=== PATIENT | female | born 1940 | race Caucasian/White ===

== ENCOUNTER 2017-08-16 10:33 | Emergency (ER) | payer OTHER ==
--- NOTE | 2017-08-16 10:58 | PDOC ---
History of Present Illness - General Chief Complaint: Pain Stated Complaint: LEFT LEG AND KNEE PAIN Time Seen by Provider: 08/16/17 10:36 History Source: Patient Exam Limitations: No Limitations - History of Present Illness Initial Comments: 08/16/17 10:53 76 y/o female with left leg pain today. Awoke with pain in the back of her left leg, no swelling or SOB and no long distance traveling. Denies any recent surgery, fever or chills. Patient denies fall or trauma. Took 2 Aspirin and feeling better. Timing/Duration: 4-6 hours Severity: mild Associated Symptoms: denies: shortness of breath Past History - Past Medical History Allergies/Adverse Reactions: Allergies Allergy/AdvReac Type Severity Reaction Status Date / Time Quinolones AdvReac Verified 08/16/17 10:35 Home Medications: Ambulatory Orders Aspirin [Lo-Dose Aspirin EC] 81 mg PO DAILY 08/16/17 Cholecalciferol (Vitamin D3) [Vitamin D3] 1,000 unit PO DAILY 08/16/17 Metoprolol Tartrate 100 mg PO TID 08/16/17 Rosuvastatin Calcium [Crestor] 20 mg PO HS 08/16/17 Ubidecarenone/Vit E Acet [Co Q-10 100 mg Softgel] 1 cap PO DAILY 08/16/17 Valsartan [Diovan] 40 mg PO DAILY 08/16/17 Valsartan [Diovan] 80 mg PO HS 08/16/17 Review of Systems - Review of Systems Able to Perform ROS?: Yes Is the patient limited Macedonian proficient: No Constitutional: No: Chills, Fever Respiratory: No: Cough, Shortness of Breath Cardiac (ROS): No: Chest Pain Musculoskeletal: No: Back Pain, Joint Pain, Muscle Weakness All Other Systems: Reviewed and Negative *Physical Exam - Physical Exam General Appearance: Yes: Nourished, Appropriately Dressed. No: Apparent Distress HEENT: positive: EOMI, GOKUL, Normal ENT Inspection Neck: positive: Trachea midline, Normal Thyroid, Supple Respiratory/Chest: positive: Lungs Clear, Normal Breath Sounds. negative: Chest Tender Cardiovascular: positive: Regular Rhythm, Regular Rate, S1, S2. negative: Edema , JVD, Murmur Gastrointestinal/Abdominal: positive: Normal Bowel Sounds, Flat, Soft Lymphatic: negative: Adenopathy, Tenderness, Other Musculoskeletal: positive: Normal Inspection. negative: CVA Tenderness Extremity: positive: Normal Capillary Refill, Normal Inspection, Normal Range of Motion. negative: Tender, Coldness, Cyanosis, Delayed Capillary Refill, Pedal Edema, Swelling, Calf Tenderness (left leg with full ROM, no swelling or erythema noted, neg Bhanu's sign, neg calf tenderness), Erythema, Inflammation Integumentary: positive: Normal Color, Dry, Warm. 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, Fully Oriented, Alert, Normal Mood/ Affect, Normal Response, Motor Strength 5/5 (strength 5+/5 b/l in UE and LE, no focal deficits noted, pulses 2+/4 b/l in LE) ED Treatment Course - ADDITIONAL ORDERS Additional order review: 08/16/17 10:58 Pt with left leg tenderness and no known injury, will obtain US left leg to r/o DVT Pt is in agreement with plan - RADIOLOGY Radiology Studies Ordered: Category Date Time Status DUPLEX VASCUL US-1 LEG [US] Stat Ultrasound 08/16/17 10:52 Ordered 08/16/17 12:24 US left leg: No DVT, Carter's cyst Discussed with pt, Tylenol, follow up with Orthopedics Pt is in agreement with plan Able to ambulate without difficulty *DC/Admit/Observation/Transfer Diagnosis at time of Disposition: Carter's cyst Qualifiers: Laterality: left Qualified Code(s): M71.22 - Synovial cyst of popliteal space [ Carter], left knee - Discharge Dispostion Disposition: HOME Condition at time of disposition: Stable Admit: No - Referrals Referrals: Jerome Mackey MD [Staff Physician] - - Patient Instructions Printed Discharge Instructions: Bakers Cyst Additional Instructions: Ice, Motrin, rest Follow up with Orthopedics If worsen return to ER - Post Discharge Activity
[2017-08-16 11:05] VITALS: BP 179/83; PULSE 68; TEMP 97.5; BMI 20.8
== END 2017-08-16 12:55 | disposition home or self-care (01) ==
LOC: FER 10:33
DX: M71.22 Synovial cyst of popliteal space [Baker], left knee (principal)
CPT/HCPCS: 93971-TC; 99282-25

== ENCOUNTER 2017-10-16 05:25 | Emergency (ER) | payer OTHER ==
[2017-10-16 05:31] VITALS: TEMP 98.4; BMI 20.8
--- NOTE | 2017-10-16 05:41 | PDOC ---
History of Present Illness <Arcadio Shaffer - Last Filed: 10/16/17 08:36> - History of Present Illness Initial Comments: 10/16/17 05:54 This 76-year-old woman with a history of hypertension and coronary artery disease(s/pCABG) presents with headache and elevated blood pressure noted on home monitoring device. Patient states that she normally wakes up between 2 and 4 AM. Today, she awakened at about 3 AM and noted bilateral frontal headache. Pain subsequently radiated to the back of her head and she became nauseated She took 2 aspirin for the headache; she took a blood pressure reading from her home monitor and noted that it was very elevated (200/110 range ). Because of the elevated BP, she took her a.m. dose of Diovan (80 mg) at 8 AM. Since then, she has had mild decrease in headache pain but nausea persists. She denies slurred speech/facial droop/extremity weakness/vision or balance problems/ word recall difficulties today. She had migraine headaches in the past that were severe but resolved after menopause. She states that some of the features of today's headache is similar to her migraine episodes(posterior portion of her headache pain is pulsatile and she is nauseated). Patient cannot recall any activity, ingested food or other triggers of migraine recently. Patient also has a history of sinus headaches; no recent nasal congestion but she has been taking Zyrtec because of early pollen sensitivities She denies shortness of breath/chest pain/diaphoresis PMD is [facility] As above, also history of orthostatic hypotension (followed by Dr. Crawford) History of detached retina , left side within the last few months <Jackie Chua - Last Filed: 10/16/17 11:43> - General Chief Complaint: Blood Pressure Problem Stated Complaint: "MY BLOOD PRESSURE IS HIGH" Time Seen by Provider: 10/16/17 05:41 Past History <Arcadio Shaffer - Last Filed: 10/16/17 08:36> - Past Medical History COPD: No GI Disorders: Yes HTN: Yes - Surgical History Cardiac Surgery: Yes (3 VESSEL BYPASS) - Suicide/Smoking/Psychosocial Hx Smoking History: Former smoker Have you smoked in the past 12 months: No Number of Cigarettes Smoked Daily: 0 If you are a former smoker, when did you quit?: 15 YEARS AGO Information on smoking cessation initiated: No Hx Alcohol Use: No Drug/Substance Use Hx: No Substance Use Type: None <Jackie Chua - Last Filed: 10/16/17 11:43> - Past Medical History Allergies/Adverse Reactions: Allergies Allergy/AdvReac Type Severity Reaction Status Date / Time Quinolones AdvReac Verified 08/16/17 10:35 Home Medications: Ambulatory Orders Aspirin [Lo-Dose Aspirin EC] 81 mg PO DAILY 08/16/17 Cholecalciferol (Vitamin D3) [Vitamin D3] 1,000 unit PO DAILY 08/16/17 Metoprolol Tartrate 100 mg PO TID 08/16/17 Rosuvastatin Calcium [Crestor] 20 mg PO HS 08/16/17 Ubidecarenone/Vit E Acet [Co Q-10 100 mg Softgel] 1 cap PO DAILY 08/16/17 Valsartan [Diovan] 40 mg PO DAILY 08/16/17 Valsartan [Diovan] 80 mg PO HS 08/16/17 Review of Systems - Review of Systems Able to Perform ROS?: Yes Comments:: 12 point review of systems is negative except for what is noted in the history of present illness <Jackie Chua - Last Filed: 10/16/17 11:43> *Physical Exam - Vital Signs Last Vital Signs Temp Pulse Resp BP Pulse Ox 98.4 F 70 14 177/94 99 10/16/17 05:26 10/16/17 08:23 10/16/17 05:26 10/16/17 08:23 10/16/17 08:23 <Arcadio Shaffer S - Last Filed: 10/16/17 08:36> - Vital Signs Last Vital Signs Temp Pulse Resp BP Pulse Ox 98.4 F 61 14 202/91 98 10/16/17 05:26 10/16/17 05:31 10/16/17 05:26 10/16/17 05:26 10/16/17 05:31 - Physical Exam Comments: GENERAL: Elderly female, alert and oriented 3, fluent speech and mild distress secondary to headache HEAD: Normal with no signs of trauma. EYES: PERRLA, pupils 1 mm bilaterally EOMI, sclera anicteric, conjunctiva clear on right, mildly injected on left. ENT: Ears normal, nares patent, oropharynx clear without exudates. Dry mucous membranes. NECK: Normal range of motion, supple without lymphadenopathy, JVD, or masses. LUNGS: Breath sounds equal, clear to auscultation bilaterally. No wheezes, and no crackles. HEART:Regular rate and rhythm, normal S1 and S2 3/6 systolic murmur across the precordium ABDOMEN:.normal bowel sounds No guarding,tenderness or rebound.No masses No distention. EXTREMITIES: Normal range of motion, no edema. No clubbing or cyanosis. No erythema, or tenderness. NEUROLOGICAL: Cranial nerves II through XII grossly intact. Normal speech. No focal neurological deficits. No pronator drift. Motor functioning 5/5 throughout. No sensory deficits. Gait not tested MUSCULOSKELETAL: Back non-tender to palpation, no CVA tenderness SKIN: Warm, Dry, normal turgor, no rashes or lesions noted. <Jackie Chua - Last Filed: 10/16/17 11:43> ED Treatment Course - LABORATORY CBC & Chemistry Diagram: 10/16/17 06:30 10/16/17 06:00 - ADDITIONAL ORDERS Additional order review: Laboratory Results 10/16/17 10/16/17 10/16/17 07:00 07:00 06:30 PT with INR 11.7 INR 1.05 Sodium Potassium Chloride Carbon Dioxide Anion Gap BUN Creatinine Creat Clearance w eGFR Random Glucose Calcium Total Bilirubin AST ALT Alkaline Phosphatase Creatine Kinase 102 Troponin I < 0.03 Total Protein Albumin 10/16/17 06:00 PT with INR INR Sodium 138 Potassium 3.7 Chloride 104 Carbon Dioxide 29 H Anion Gap 5 L BUN 30 H Creatinine 1.2 Creat Clearance w eGFR 43.68 Random Glucose 111 H D Calcium 9.8 Total Bilirubin 0.8 D AST 36 D ALT 36 D Alkaline Phosphatase 58 D Creatine Kinase 102 Troponin I Total Protein 6.8 Albumin 4.2 10/16/17 06:30 RBC 4.47 MCV 94.7 MCHC 34.8 RDW 13.2 MPV 9.7 Neutrophils % 67.9 Lymphocytes % 21.1 Monocytes % 8.3 Eosinophils % 2.7 Basophils % 0.0 - Medications Given in the ED: ED Medications Discontinued Medications Generic Name Dose Route Start Last Admin Trade Name Freq PRN Reason Stop Dose Admin Metoclopramide HCl 10 mg 10/16/17 05:47 03/15/18 06:03 Reglan Injection - IVPB 10/16/17 05:48 10 mg ONCE ONE Administration Ondansetron HCl 4 mg 10/16/17 06:49 10/16/17 06:52 Zofran Injection IVPUSH 10/16/17 06:50 4 mg ONCE ONE Administration <LuismiguelarmaniArcadio - Last Filed: 10/16/17 08:36> - LABORATORY CBC & Chemistry Diagram: 10/16/17 06:30 10/16/17 06:00 <Jackie Chua - Last Filed: 10/16/17 11:43> Medical Decision Making - Medical Decision Making 10/16/17 06:09 Patient had episode of vomiting (small amount of yellowish fluid). Patient given Reglan 10 mg IVPB in 100 mL both for antiemetic effects and treatment of possible migraine CBC/chemistry profile/cardiac enzymes and INR sent. Noncontrast head CT will be performed to evaluate for acute intracranial pathology 10/16/17 06:49 Patient reports some improvement in her headache, although nausea persisted. Patient be given Zofran 4 mg 12-lead electrocardiogram ordered Care of this patient signed out to incoming physician at end of shift. <Jackie Chua - Last Filed: 10/16/17 11:43> *DC/Admit/Observation/Transfer <Arcadio Shaffer - Last Filed: 10/16/17 08:36> <Jackie Chua - Last Filed: 10/16/17 11:43> Diagnosis at time of Disposition: Headache Qualifiers: Headache type: other headache syndrome Qualified Code(s): G44.89 - Other headache syndrome Hypertension Qualifiers: Hypertension type: essential hypertension Qualified Code(s): I10 - Essential ( primary) hypertension - Discharge Dispostion Condition at time of disposition: Good - Referrals Referrals: Jigar Bell MD [Primary Care Provider] - Fabiola Crawford MD [Non Staff, Medical] - - Patient Instructions Printed Discharge Instructions: DI for High Blood Pressure, How to Monitor Your Blood Pressure at Home Additional Instructions: Take medications as routine. Follow up with your doctors - Post Discharge Activity
[2017-10-16] MEDS ORDERED: METOCLOPRAMIDE HCL INJECTION 10 MG/2 ML VIAL IVPB ONE (05:47)
[2017-10-16] MEDS ORDERED: ONDANSETRON 4 MG/2 ML VIAL IVPUSH ONE (06:49)
[2017-10-16] MEDS ORDERED: ONDANSETRON 4 MG/2 ML VIAL ONE (07:06)
[2017-10-16 07:29] LABS: INR 1.05 (0.82-1.09); PROTHROMBIN TIME (PATIENT) 11.7 SEC (10.2-13.0)
[2017-10-16 07:46] LABS: EOS % 2.7 % (0-4.5); HEMATOCRIT 42.3 % (32.4-45.2); HEMOGLOBIN 14.7 GM/dl (10.7-15.3); LYMPH % 21.1 % (8-40); MCH 32.9 pg (25.7-33.7); MCHC 34.8 g/dl (32.0-36.0); MEAN CELL VOLUME 94.7 fl (80-96); MEAN PLT VOLUME 9.7 fl (7.5-11.1); MONO % 8.3 % (3.8-10.2); NEUT % 67.9 % (42.8-82.8); PLATELET COUNT 178 K/MM3 (134-434); RBC 4.47 M/mm3 (3.60-5.2); RDW 13.2 % (11.6-15.6); WHITE BLOOD COUNT 8.7 K/mm3 (4.0-10.8)
[2017-10-16 07:47] LABS: ALBUMIN 4.2 g/dl (3.5-5.0); ALK PHOS 58 U/L (32-92); ANION GAP 5 (8-16); BILIRUBIN,TOTAL 0.8 mg/dl (0.2-1.0); BLOOD UREA NITROGEN 30 mg/dl (7-18); CALCIUM 9.8 mg/dl (8.4-10.2); CHLORIDE 104 mmol/L (98-107); CO2 29 mmol/L (22-28); CREATININE 1.2 mg/dl (0.6-1.3); GLUCOSE,RANDOM 111 mg/dl (74-106); POTASSIUM 3.7 mmol/L (3.5-5.1); SGOT/AST 36 U/L (10-42); SGPT/ALT 36 U/L (10-40); SODIUM 138 mmol/L (136-145); TOT PROT 6.8 g/dl (6.4-8.3)
[2017-10-16 08:24] VITALS: BP 177/94; PULSE 70
--- NOTE | 2017-10-16 08:39 | PDOC ---
*Physical Exam - Vital Signs Last Vital Signs Temp Pulse Resp BP Pulse Ox 98.4 F 70 14 177/94 99 10/16/17 05:26 10/16/17 08:23 10/16/17 05:26 10/16/17 08:23 10/16/17 08:23 ED Treatment Course - LABORATORY CBC & Chemistry Diagram: 10/16/17 06:30 10/16/17 06:00 - ADDITIONAL ORDERS Additional order review: Laboratory Results 10/16/17 10/16/17 10/16/17 07:00 07:00 06:30 PT with INR 11.7 INR 1.05 Sodium Potassium Chloride Carbon Dioxide Anion Gap BUN Creatinine Creat Clearance w eGFR Random Glucose Calcium Total Bilirubin AST ALT Alkaline Phosphatase Creatine Kinase 102 Troponin I < 0.03 Total Protein Albumin 10/16/17 06:00 PT with INR INR Sodium 138 Potassium 3.7 Chloride 104 Carbon Dioxide 29 H Anion Gap 5 L BUN 30 H Creatinine 1.2 Creat Clearance w eGFR 43.68 Random Glucose 111 H D Calcium 9.8 Total Bilirubin 0.8 D AST 36 D ALT 36 D Alkaline Phosphatase 58 D Creatine Kinase 102 Troponin I Total Protein 6.8 Albumin 4.2 10/16/17 06:30 RBC 4.47 MCV 94.7 MCHC 34.8 RDW 13.2 MPV 9.7 Neutrophils % 67.9 Lymphocytes % 21.1 Monocytes % 8.3 Eosinophils % 2.7 Basophils % 0.0 - Medications Given in the ED: ED Medications Discontinued Medications Generic Name Dose Route Start Last Admin Trade Name Freq PRN Reason Stop Dose Admin Metoclopramide HCl 10 mg 10/16/17 05:47 10/16/17 06:03 Reglan Injection - IVPB 10/16/17 05:48 10 mg ONCE ONE Administration Ondansetron HCl 4 mg 10/16/17 06:49 10/16/17 06:52 Zofran Injection IVPUSH 10/16/17 06:50 4 mg ONCE ONE Administration *DC/Admit/Observation/Transfer Diagnosis at time of Disposition: Headache Qualifiers: Headache type: other headache syndrome Qualified Code(s): G44.89 - Other headache syndrome Hypertension Qualifiers: Hypertension type: essential hypertension Qualified Code(s): I10 - Essential ( primary) hypertension - Discharge Dispostion Condition at time of disposition: Good - Referrals Referrals: Jigar Bell MD [Primary Care Provider] - Fabiola Crawford MD [Non Staff, Medical] - - Patient Instructions Printed Discharge Instructions: DI for High Blood Pressure, How to Monitor Your Blood Pressure at Home Additional Instructions: Take medications as routine. Follow up with your doctors - Post Discharge Activity
--- NOTE | 2017-10-17 15:10 | EKG ---
Test Reason : Blood Pressure : / mmHG Vent. Rate : 063 BPM Atrial Rate : 063 BPM P-R Int : 158 ms QRS Dur : 080 ms QT Int : 416 ms P-R-T Axes : 108 -02 054 degrees QTc Int : 425 ms NORMAL SINUS RHYTHM SEPTAL INFARCT , AGE UNDETERMINED ABNORMAL ECG NO PREVIOUS ECGS AVAILABLE Confirmed by PIPO HOLMAN MD ([id number]) on 10/17/2017 3:09:40 PM Referred By: JOSE ALLEN Confirmed By:PIPO HOLMAN MD
== END 2017-10-16 08:47 | disposition home or self-care (01) ==
LOC: FER 05:25
PROC: 3E033GC Introduction of Other Therapeutic Substance into Peripheral Vein, Percutaneous Approach (ICD-10-PCS; principal; 2017-10-16)
DX: G44.89 Other headache syndrome (principal); I10 Essential (primary) hypertension; I25.10 Atherosclerotic heart disease of native coronary artery without angina pectoris; Z87.891 Personal history of nicotine dependence
CPT/HCPCS: 36415; 70450-TC; 80053; 82550; 84484; 85025; 85610; 93005; 99284-25

== ENCOUNTER 2018-05-27 08:24 | Day surgery (SDC) | payer OTHER ==
[2018-05-22 14:27] VITALS: BMI 21.1
[2018-05-27] MEDS: TROPICAMIDE 1% OPHTH SOLN 15 ML BOTTLE ONE ×3 (09:05→09:15)
[2018-05-27] MEDS: PHENYLEPHRINE 2.5% OPHTH SOLN 15 ML BOTTLE ONE ×3 (09:05→09:15)
[2018-05-27] MEDS: CIPROFLOXACIN 0.3% EYE DROPS 5 ML BOTTLE ONE ×3 (09:05→09:15)
[2018-05-27] MEDS: CYCLOPENTOLATE 2% OPHTH SOLN 2 ML BOTTLE ONE ×3 (09:05→09:15)
[2018-05-27] MEDS ORDERED: NEO/POLYMYX B SULF/DEXAMETH OPHTHALMIC 5ML BOTTLE ONE (10:09)
[2018-05-27] MEDS ORDERED: CARBACHOL 0.01% INTRA-OCULAR 1.5 ML VIAL ONE (10:09)
[2018-05-27] MEDS ORDERED: BSS (NA/CA/MG/K) BALANCED SALT SOLUTION OPHTH SOLN 15 ML BOTTLE ONE (10:09)
[2018-05-27] MEDS ORDERED: TETRACAINE 0.5% OPHTH SOLN 2 ML BOTTLE ONE (10:09)
[2018-05-27] MEDS ORDERED: LIDOCAINE 1% P/F 10 MG/ML VIAL ONE (10:09)
--- NOTE | 2018-05-27 12:20 | OP ---
DATE OF OPERATION: 05/27/2018 OPERATIVE PROCEDURE: Lens Phacoemulsification with Posterior Chamber Intraocular Lens Placement Left Eye PREOPERATIVE DIAGNOSIS: Visually Significant Cataract of Left Eye POSTOPERATIVE DIAGNOSIS: Visually Significant Cataract of Left Eye SURGEON: Kahlil Lr M.D. ANESTHESIA: MAC ANESTHESIOLOGIST: PROCEDURE: The patient was brought to the operating room and placed under monitored anesthesia care by Anesthesia. A drop of Tetracaine was then placed over the left eye. The patient was then prepped and draped in the usual sterile manner. A speculum was then placed over the left eye. The eye was then well irrigated with copious amounts of BSS (balanced salt solution). The operating microscope was then moved into position. A paracentesis was performed using a 15 degree blade. At this point 0.5 mL of 1% preservative-free lidocaine was injected into the anterior chamber. Amvisc plus was then injected into the anterior chamber. A clear corneal incision was then formed using a 2.2 mm keratome. A capsulorrhexis was then performed in a continuous circular fashion beginning with a cystotome, completed with an Utratas forceps. Hydrodissection was then performed using BSS on a cannula. The phaco probe was then introduced through the corneal wound and the cataract was removed using the phaco chop technique. Approximately 3 seconds of absolute phaco time was used. The remaining cortex was then removed using irrigation and aspiration with an I/A probe. The capsule was then filled with regular Amvisc and the capsule was noted to be intact. A previously selected foldable posterior chamber intraocular lens was then injected into the capsule through the corneal wound using a lens injector. It was then dialed into position using a Sinskey hook. The Amvisc was then removed using irrigation and aspiration. Miostat was then injected through the paracentesis to constrict the pupil. The paracentesis and corneal wound were then hydrated and noted to be water tight. A drop of Maxitrol was then placed over the eye. The speculum was removed and clear shield was taped over the eye. The patient tolerated the procedure well and there were no surgical complications. The patient was asked to follow up in my office the next day. KAHLIL LR M.D. MARIA [id number]
[2018-05-27] MEDS ORDERED: ACETAMINOPHEN 325 MG TABLET (FP) PO PRN (12:55)
[2018-05-27] MEDS ORDERED: ONDANSETRON 4 MG/2 ML VIAL IVPUSH PRN (12:55)
[2018-05-27] MEDS ORDERED: LACTATED RINGERS SOLUTION 1,000 ML IV SCH (13:00)
[2018-05-27 13:46] VITALS: TEMP 97.6
[2018-05-27 14:20] VITALS: BP 146/72; PULSE 59
== END 2018-05-27 11:30 | disposition home or self-care (01) ==
LOC: FASU 08:24
PROVIDERS: ATTEND Ophthalmology
PROC: 08RK3JZ Replacement of Left Lens with Synthetic Substitute, Percutaneous Approach (ICD-10-PCS; principal; 2018-05-27 10:22)
DX: H26.8 Other specified cataract (principal)

== ENCOUNTER 2018-07-08 09:02 | Day surgery (SDC) | payer OTHER ==
[2018-07-03 09:13] VITALS: BMI 21.1
[2018-07-08] MEDS: CYCLOPENTOLATE 2% OPHTH SOLN 2 ML BOTTLE ONE ×3 (09:50→10:00)
[2018-07-08] MEDS: CIPROFLOXACIN 0.3% EYE DROPS 5 ML BOTTLE ONE ×3 (09:50→10:00)
[2018-07-08] MEDS: TROPICAMIDE 1% OPHTH SOLN 15 ML BOTTLE ONE ×3 (09:50→10:00)
[2018-07-08] MEDS: PHENYLEPHRINE 2.5% OPHTH SOLN 15 ML BOTTLE ONE ×3 (09:50→10:00)
[2018-07-08] MEDS ORDERED: BSS (NA/CA/MG/K) BALANCED SALT SOLUTION OPHTH SOLN 15 ML BOTTLE ONE (10:49)
[2018-07-08] MEDS ORDERED: CARBACHOL 0.01% INTRA-OCULAR 1.5 ML VIAL ONE (10:49)
[2018-07-08 12:11] VITALS: TEMP 97.9
[2018-07-08 12:13] VITALS: BP 110/65; PULSE 71
--- NOTE | 2018-07-08 17:48 | OP ---
DATE OF OPERATION: 07/08/2018 OPERATIVE PROCEDURE: Lens Phacoemulsification with Posterior Chamber Intraocular Lens Placement, Right Eye PREOPERATIVE DIAGNOSIS: Visually Significant Cataract of Right Eye POSTOPERATIVE DIAGNOSIS: Visually Significant Cataract of Right Eye SURGEON: Kahlil Lr M.D. ANESTHESIA: MAC ANESTHESIOLOGIST: PROCEDURE: The patient was brought to the operating room and placed under monitored anesthesia care by Anesthesia. A drop of Tetracaine was then placed over the right eye. The patient was then prepped and draped in the usual sterile manner. A speculum was then placed over the right eye. The eye was then well irrigated with copious amounts of BSS (balanced salt solution). The operating microscope was then moved into position. A paracentesis was performed using a 15 degree blade. At this point 0.5 mL of 1% preservative free-lidocaine was injected into the anterior chamber. Amvisc plus was then injected into the anterior chamber. A clear corneal incision was then formed using a 2.2 mm keratome. A capsulorrhexis was then performed in a continuous circular fashion beginning with a cystotome completed with an Utratas forceps. Hydrodissection was then performed using BSS on a cannula. The phaco probe was then introduced through the corneal wound and the cataract was removed using the phaco chop technique. Approximately 3 seconds of absolute phaco time was used. The remaining cortex was then removed using irrigation and aspiration with an I/A probe. The capsule was then filled with regular Amvisc and the capsule was noted to be intact. A previously selected foldable posterior chamber intraocular lens was then injected into the capsule through the corneal wound using a lens injector. It was then dialed into position using a Sinskey hook. The Amvisc was then removed using irrigation and aspiration. Miostat was then injected through the paracentesis to constrict the pupil. The paracentesis and corneal wound were then hydrated and noted to be water tight. A drop of Maxitrol was then placed over the eye. The speculum was removed and clear shield was taped over the eye. The patient tolerated the procedure well and there were no surgical complications. The patient was asked to follow up in my office the next day. KAHLIL LR M.D. [id number]
== END 2018-07-08 12:05 | disposition home or self-care (01) ==
LOC: FASU 09:02
PROVIDERS: ATTEND Ophthalmology
PROC: 08RJ3JZ Replacement of Right Lens with Synthetic Substitute, Percutaneous Approach (ICD-10-PCS; principal; 2018-07-08 11:03)
DX: H26.8 Other specified cataract (principal)

== ENCOUNTER 2018-11-21 10:46 | Emergency (ER) | payer OTHER ==
--- NOTE | 2018-11-21 10:52 | PDOC ---
History of Present Illness - General Chief Complaint: Pain Stated Complaint: RT ANKLE PAIN Time Seen by Provider: 11/21/18 10:50 - History of Present Illness Initial Comments: 11/21/18 11:21 78yo female with pmhx of cad s/p cabg, new kidney disease, htn, hld presents with R ankle pain and swelling. Pt denies trauma. States the pain started on Friday while at work. States it has been aching in both her heel and her R ankle. States she has been sleeping with a sleeve on to help with the pain. Pt denies f/c. No calf pain. No falls. No recent travel. No pets, no bug bites, no rashes. States a month ago she developed L shoulder pain with ROM which has resolved and now she has R ankle pain and swelling. Pt denies cp/sob. No abd pain. No n/v.d. No f/c. No other complaints. Pmhx: cad, kidney disease, htn, hld Pshx: cabg allergies: codeine, quinolones Past History - Past Medical History Allergies/Adverse Reactions: Allergies Allergy/AdvReac Type Severity Reaction Status Date / Time codeine AdvReac Intermediate NAUSEA/VOMI Verified 05/27/18 09:12 TING Quinolones AdvReac Intermediate SEVERE Verified 05/27/18 09:12 NAUSEA,MUSCLE WEAKNESS Home Medications: Ambulatory Orders Aspirin [Lo-Dose Aspirin EC] 81 mg PO DAILY 08/16/17 Metoprolol Tartrate 100 mg PO TID 08/16/17 Rosuvastatin Calcium [Crestor] 20 mg PO HS 08/16/17 Amlodipine Besylate 2.5 mg PO BID 05/22/18 Meclizine HCl 12.5 mg PO ASDIR 05/22/18 Olmesartan Medoxomil [Benicar] 20 mg PO BID 05/22/18 Anemia: No Asthma: No Cancer: No Cardiac Disorders: Yes (2008 CHEST PAINS PRIOR TO BYPASS, DENIES RI) CVA: No COPD: No CHF: No Dementia: No Diabetes: No GI Disorders: Yes (HX GERD IN THE PAST) Disorders: No HTN: Yes Hypercholesterolemia: Yes Liver Disease: No (ELEVATED LFT S) Seizures: No Thyroid Disease: No - Surgical History Abdominal Surgery: No Appendectomy: No Cardiac Surgery: Yes (3 VESSEL BYPASS 2007) Cholecystectomy: No Lung Surgery: No Neurologic Surgery: No - Suicide/Smoking/Psychosocial Hx Smoking History: Former smoker Have you smoked in the past 12 months: No Number of Cigarettes Smoked Daily: 0 If you are a former smoker, when did you quit?: 08/2002 Hx Alcohol Use: No (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 ) Drug/Substance Use Hx: No Substance Use Type: None Hx Substance Use Treatment: No Review of Systems - Review of Systems Able to Perform ROS?: Yes Is the patient limited Maori proficient: No Constitutional: No: Chills, Fever HEENTM: No: Eye Pain, Nose Pain, Nose Congestion Respiratory: No: Cough, Shortness of Breath Cardiac (ROS): No: Chest Pain, Lightheadedness, Palpitations ABD/GI: No: Diarrhea, Nausea, Vomiting, Abdominal cramping : No: Burning, Dysuria Musculoskeletal: Yes: Joint Pain (ankle pain and swelling) Integumentary: No: Bruising, Erythema, Rash Neurological: No: Headache, Numbness, Paresthesia, Unsteady Gait, Ataxia All Other Systems: Reviewed and Negative *Physical Exam - Vital Signs 11/21/18 11:26 Selected Entries 11/21/18 10:47 Temperature 98.2 F Pulse Rate 88 Respiratory 20 Rate Blood Pressure 130/72 Blood Pressure 91 Mean O2 Sat by Pulse 98 Oximetry (%) Weight 64.41 kg - Physical Exam General Appearance: Yes: Nourished, Appropriately Dressed. No: Apparent Distress HEENT: positive: EOMI, Normal Voice Neck: positive: Supple Respiratory/Chest: positive: Lungs Clear, Normal Breath Sounds. negative: Respiratory Distress Cardiovascular: positive: Regular Rhythm, Regular Rate, S1, S2, Edema (b/l trave pedal edema). negative: JVD Gastrointestinal/Abdominal: positive: Normal Bowel Sounds, Flat, Soft. negative : Guarding, Rebound, Tenderness Musculoskeletal: positive: Normal Inspection Extremity: positive: Normal Capillary Refill, Normal Range of Motion, Swelling ( b/l pedal edmea R>L), Other (R ankle ttp over the anterior aspect of the medial malleolus, no heel ttp, FROM of the ankle, neg anterior drawer test of the ankle , pedal pulses intact, sensation intact, brisk cap refill, no ttp over metatarsals, no medial malleolus ttp, no ttp along distal fibula or tibia, no calf ttp). negative: Calf Tenderness Integumentary: positive: Normal Color, Dry, Warm Neurologic: positive: Fully Oriented, Alert, Normal Mood/Affect, Motor Strength 12/06 ED Treatment Course - LABORATORY CBC & Chemistry Diagram: 11/21/18 11:17 11/21/18 11:17 Medical Decision Making - Medical Decision Making 11/21/18 11:29 a/p: 78yo female with new kidney disease dx with c/o R ankle pain and swelling -will send labs, cr/K given complaint of emilee horse feeling at night -will obtain ultrasound of legs -will obtain xrays of foot and ankle for eval of poss arthritis -will give tylenol for pain -will monitor and reassess -pt is nontoxic in appearance 11/21/18 11:59 arthritic changes to ankle no acute fx cbc reviewed without acute findings 11/21/18 12:20 Cr 1.3 no dvt bakers cyst 11/21/18 12:31 discussed labs and imaging results in full details discussed follow up with orthopedics discussed RICE for the ankle discussed all reasons to return to the ED answered all questions pt stable for dc to home *DC/Admit/Observation/Transfer Diagnosis at time of Disposition: Carter's cyst, Arthritis of ankle - Discharge Dispostion Disposition: HOME Condition at time of disposition: Stable Decision to Admit order: No - Referrals Referrals: Jigar Bell MD [Staff Physician] - Jerome Mackey MD [Staff Physician] - Karl Boyce DO [Staff Physician] - Nathan Rutledge MD [Staff Physician] - - Patient Instructions Printed Discharge Instructions: DI for Arthrodesis of the Ankle Additional Instructions: Please apply ice 20 min on and 20 min off. Please wear the sleeve to apply compression to the ankle. Please elevate the leg. Please take tylenol as needed for pain. Please follow up with orthopedics for further evaluation of the ankle and leg pain. Please also follow up with your PMD as scheduled. Please return to the ED with any further concerns or complaints. - Post Discharge Activity - Attestations Physician Attestion: 11/21/18 12:34 I, Dr. Suzan Hammond, DO, attest that this document has been prepared under my direction and personally reviewed by me in its entirety. I further attest, that it accurately reflects all work, treatment, procedures and medical decision -making performed by me.
[2018-11-21 11:01] VITALS: BP 130/72; PULSE 88; TEMP 98.2; BMI 22.2
[2018-11-21 11:56] LABS: BASO % 0.8 % (0-2.0); EOS % 2.4 % (0-4.5); HEMATOCRIT 38.7 % (32.4-45.2); LYMPH % 22.1 % (8-40); MCH 32.2 pg (25.7-33.7); MCHC 33.5 g/dl (32.0-36.0); MEAN CELL VOLUME 95.9 fl (80-96); MEAN PLT VOLUME 9.7 fl (7.5-11.1); MONO % 8.3 % (3.8-10.2); NEUT % 66.4 % (42.8-82.8); PLATELET COUNT 151 K/MM3 (134-434); RBC 4.04 M/mm3 (3.60-5.2); RDW 13.1 % (11.6-15.6); WHITE BLOOD COUNT 6.4 K/mm3 (4.0-10.8)
[2018-11-21] MEDS ORDERED: ACETAMINOPHEN 500 MG TABLET (FP) PO ONE (12:01)
[2018-11-21 12:09] LABS: ALBUMIN 3.6 g/dl (3.4-5.0); ALK PHOS 52 U/L (45-117); ANION GAP 6 MMOL/L (8-16); BILIRUBIN,TOTAL 0.9 mg/dl (0.2-1); BLOOD UREA NITROGEN 24 mg/dl (7-18); CALCIUM 9.2 mg/dl (8.5-10); CHLORIDE 105 mmol/L (98-107); CO2 26 mmol/L (21-32); CREATININE 1.3 mg/dl (0.55-1.3); GLUCOSE,RANDOM 134 mg/dl (74-106); POTASSIUM 3.9 mmol/L (3.5-5.1); SGOT/AST 23 U/L (15-37); SGPT/ALT 17 U/L (13-61); SODIUM 137 mmol/L (136-145); TOT PROT 6.4 g/dl (6.4-8.2)
[2018-11-21] MEDS ORDERED: ACETAMINOPHEN 500 MG TABLET (FP) ONE (12:09)
== END 2018-11-21 12:40 | disposition home or self-care (01) ==
LOC: FER 10:46
DX: M13.871 Other specified arthritis, right ankle and foot (principal); Z87.891 Personal history of nicotine dependence; K21.9 Gastro-esophageal reflux disease without esophagitis; I10 Essential (primary) hypertension; E78.00 Pure hypercholesterolemia, unspecified; Z95.1 Presence of aortocoronary bypass graft; N28.9 Disorder of kidney and ureter, unspecified
CPT/HCPCS: 36415; 73610-TC-RT-FY; 73630-TC-RT-FY; 80053; 85025; 93971-TC; 99282-25

== ENCOUNTER 2021-10-19 14:06 | Emergency (ER) | payer OTHER ==
[2021-10-19 14:22] VITALS: BP 94/58; PULSE 74; TEMP 97.7; BMI 23.3
== END 2021-10-19 15:40 | disposition home or self-care (01) ==
LOC: FER 14:06
DX: M17.11 Unilateral primary osteoarthritis, right knee (principal); M25.561 Pain in right knee
CPT/HCPCS: 73562-TC-RT-FY; 99283-25

== ENCOUNTER 2022-08-29 22:13 | Emergency (ER) | payer OTHER ==
[2022-08-29 22:24] VITALS: BMI 23.5
[2022-08-29 23:08] LABS: HEMATOCRIT 32.8 % (32.4-45.2); HEMOGLOBIN 11.5 G/dL (10.7-15.3); MCH 34.1 pg (25.7-33.7); MEAN CELL VOLUME 97.7 fl (80-96); MEAN PLT VOLUME 9.2 fl (7.5-11.1); PLATELET COUNT 177.8 10^3/uL (134-434); RBC 3.36 10^6/uL (3.60-5.2); RDW 16.3 % (11.6-15.6); WHITE BLOOD COUNT 8.2 10^3/uL (4.0-10.8)
[2022-08-29] MEDS ORDERED: FUROSEMIDE 40 MG/4 ML INJECTABLE VIAL IVPUSH ONE (23:09)
[2022-08-29] MEDS ORDERED: FUROSEMIDE 40 MG/4 ML INJECTABLE VIAL ONE (23:12)
[2022-08-29 23:15] LABS: ALBUMIN 3.4 g/dl (3.4-5.0); BILIRUBIN,TOTAL 0.6 mg/dl (0.2-1); CALCIUM 11.3 mg/dl (8.5-10); CREATININE 1.8 mg/dl (0.55-1.3)
[2022-08-29] MEDS ORDERED: POTASSIUM CHLORIDE TABS 20 MEQ TABLET.ER (FP) PO ONE ×2 (23:18→23:19)
[2022-08-30] MEDS ORDERED: POTASSIUM CHLORIDE 20 MEQ PREMIX IVPB 100 ML IVPB ONE (01:25)
[2022-08-30] MEDS ORDERED: KCL 10 MEQ IVPB 20 MEQ/200 ML INFUS.BAG IVPB ONE (01:37)
[2022-08-30 03:08] LABS: MAGNESIUM 2.2 mg/dL (1.8-2.4)
[2022-08-30 03:13] LABS: PHOSPHOROUS 3.6 mg/dL (2.5-4.9)
[2022-08-30 08:04] LABS: HEMATOCRIT 35.8 % (32.4-45.2); HEMOGLOBIN 12.2 G/dL (10.7-15.3); MCH 33.4 pg (25.7-33.7); MCHC 34.1 g/dl (32.0-36.0); MEAN CELL VOLUME 98.1 fl (80-96); MEAN PLT VOLUME 9.7 fl (7.5-11.1); PLATELET COUNT 210.8 10^3/uL (134-434); RBC 3.65 10^6/uL (3.60-5.2); RDW 17.1 % (11.6-15.6); WHITE BLOOD COUNT 10.5 10^3/uL (4.0-10.8)
[2022-08-30 08:09] LABS: INR 1.02 (0.83-1.09); PROTHROMBIN TIME (PATIENT) 11.7 SEC (9.7-13.0)
[2022-08-30 08:10] LABS: ACTIVATED PTT 29.3 SECONDS (25.2-36.5)
[2022-08-30 08:40] LABS: CALCIUM 11.2 mg/dl (8.5-10); CREATININE 1.8 mg/dl (0.55-1.3)
[2022-08-30] MEDS ORDERED: ASPIRIN COATED 81 MG TABLET.EC ONE (09:56)
[2022-08-30] MEDS: KCL 10 MEQ IVPB 10 MEQ/100 ML INFUS.BAG IVPB SCH ×2 (09:57→11:15)
[2022-08-30] MEDS ORDERED: KCL 10 MEQ IVPB 10 MEQ/100 ML INFUS.BAG IVPB ONE ×2 (09:57→12:00)
[2022-08-30] MEDS ORDERED: ASPIRIN COATED 81 MG TABLET.EC PO SCH (10:00)
[2022-08-30 10:08] LABS: EPITHELIAL CELLS RARE /hpf
[2022-08-30] MEDS ORDERED: SODIUM CHLORIDE 0.9% 500 ML INFUS.BAG IV ONE (12:17)
[2022-08-30] MEDS ORDERED: SODIUM CHLORIDE 1,000 ML IV SCH (14:45)
[2022-08-30 16:40] VITALS: TEMP 98.2
[2022-08-30 16:46] VITALS: BP 91/61; PULSE 44; RESP 16
[2022-08-30] MEDS ORDERED: ROSUVASTATIN CA 20 MG TABLET PO SCH (22:00)
== END 2022-08-30 18:12 | disposition short-term general hospital (02) ==
LOC: FER 22:13 → SUPCPDRO 22:13 → FER 08-30 18:12
PROC: 3E033GC Introduction of Other Therapeutic Substance into Peripheral Vein, Percutaneous Approach (ICD-10-PCS; principal; 2022-08-29)
DX: R53.83 Other fatigue (principal); R00.1 Bradycardia, unspecified; E87.6 Hypokalemia
CPT/HCPCS: 0241U-QW; 36415; 71045-TC-FY; 80048; 80053; 81003; 81015; 82550; 83735; 83880; 84100; 84439; 84443; 84479; 84484; 85027; 85610; 85730; 87086; 87186; 93005; 93306-TC; 99285-25

== ENCOUNTER 2023-01-12 17:55 | Emergency (ER) | payer OTHER ==
[2023-01-12 18:19] VITALS: TEMP 98.2; BMI 23.5
[2023-01-12] MEDS ORDERED: ACETAMINOPHEN 500 MG TABLET (FP) PO ONE (19:07)
[2023-01-12] MEDS ORDERED: ACETAMINOPHEN 500 MG TABLET (FP) ONE (19:23)
[2023-01-12 19:36] VITALS: RESP 17
[2023-01-12] MEDS ORDERED: LABETALOL HCL 100 MG TABLET (FP) PO ONE (19:43)
[2023-01-12] MEDS ORDERED: LORazepam 0.5 MG TABLET PO ONE (19:43)
[2023-01-12] MEDS ORDERED: LABETALOL HCL 100 MG TABLET (FP) ONE (19:47)
[2023-01-12] MEDS ORDERED: LORazepam 0.5 MG TABLET ONE (19:47)
[2023-01-12 20:52] VITALS: BP 145/81; PULSE 84
== END 2023-01-12 21:17 | disposition home or self-care (01) ==
LOC: FER 17:55
DX: R51.9 Headache, unspecified (principal); I10 Essential (primary) hypertension
CPT/HCPCS: 70450-TC; 99284-25

== ENCOUNTER 2024-03-25 21:11 | Emergency (ER) | payer OTHER ==
[2024-03-25 21:18] VITALS: BMI 23.5
[2024-03-25 22:01] VITALS: BP 135/87; PULSE 77; RESP 12; TEMP 97.6
== END 2024-03-25 23:35 | disposition home or self-care (01) ==
LOC: FER 21:11
DX: M25.561 Pain in right knee (principal)
CPT/HCPCS: 73562-TC-RT-FY; 99283-25

== ENCOUNTER 2025-05-28 09:16 | Inpatient (IN) | payer OTHER ==
[2025-05-28 10:34] LABS: ARTERIAL BLD GAS O2 SATURATION 99.1 % (95-98); ARTERIAL BLOOD GAS BASE EXCESS 5.1 mmol/L (-2-2); ARTERIAL BLOOD GAS PCO2 40.00 mmHg (35-45); ARTERIAL BLOOD GAS PO2 157.8 mmHg (80-100); BG HCT 48.0 % (32.4-45.2)
[2025-05-28 13:15] LABS: ABSOLUTE IMMATURE GRANULOCYTES 0.05 x10^3/uL (0.0-0.031); BASOPHILS # 0.04 x10^3/uL (0.01-0.08); EOSINOPHIL % 0.7 % (0.7-5.8); EOSINOPHILS # 0.08 x10^3/uL (0.04-0.36); MCHC 33.5 g/dl (32.2-35.5); MEAN CELL VOLUME 94.8 fl (79.4-94.8); MEAN PLT VOLUME 10.6 fl (9.4-12.3); MONOCYTE # 0.72 x10^3/uL (0.24-0.86); MONOCYTE % 6.5 % (4.7-12.5); RDW 14.2 % (12.5-17.0)
[2025-05-28 14:09] LABS: ALK PHOS 65 U/L (45-117); CO2 33 mmol/L (21-32); CREATININE 0.9 mg/dl (0.6-1.3); GLUCOSE,RANDOM 110 mg/dl (74-106); SGOT/AST 21 U/L (15-37); SGPT/ALT 12 U/L (7-52); TOT PROT 7.1 g/dl (6.4-8.2)
[2025-05-28 15:54] LABS: HCV DIAGNOSTIC IN-HOUSE W/RFLX NON-REACTIVE (NONREACTIVE); HIV INTERPRETATION NEGATIVE (NEGATIVE)
[2025-05-28 16:13] VITALS: BMI 21.1
[2025-05-28] MEDS: POTASSIUM CHLORIDE TABS 20 MEQ TABLET.ER (FP) PO SCH (18:24)
[2025-05-28] MEDS: ROSUVASTATIN CA 20 MG TABLET PO SCH (21:27)
[2025-05-29 09:03] LABS: ABSOLUTE IMMATURE GRANULOCYTES 0.02 x10^3/uL (0.0-0.031); BASOPHILS # 0.07 x10^3/uL (0.01-0.08); EOSINOPHIL % 2.9 % (0.7-5.8); EOSINOPHILS # 0.24 x10^3/uL (0.04-0.36); MCHC 33.0 g/dl (32.2-35.5); MEAN CELL VOLUME 95.5 fl (79.4-94.8); MEAN PLT VOLUME 10.9 fl (9.4-12.3); MONOCYTE # 0.75 x10^3/uL (0.24-0.86); MONOCYTE % 8.9 % (4.7-12.5); RDW 14.4 % (12.5-17.0)
[2025-05-29] MEDS: TRIAMTERENE AND HCTZ - 37.5 MG/25 MG CAPSULE PO SCH (09:57)
[2025-05-29 10:55] LABS: ALK PHOS 59.0 U/L (45-117); CO2 31.0 mmol/L (21-32); CREATININE 0.9 mg/dl (0.6-1.3); GLUCOSE,RANDOM 86.0 mg/dl (74-106); SGOT/AST 21.0 U/L (15-37); SGPT/ALT 11.0 U/L (7-52); TOT PROT 6.4 g/dl (6.4-8.2)
[2025-05-30 07:47] LABS: ABSOLUTE IMMATURE GRANULOCYTES 0.04 x10^3/uL (0.0-0.031); BASOPHILS # 0.07 x10^3/uL (0.01-0.08); EOSINOPHIL % 3.0 % (0.7-5.8); EOSINOPHILS # 0.23 x10^3/uL (0.04-0.36); MCHC 33.3 g/dl (32.2-35.5); MEAN CELL VOLUME 94.5 fl (79.4-94.8); MEAN PLT VOLUME 10.3 fl (9.4-12.3); MONOCYTE # 0.71 x10^3/uL (0.24-0.86); MONOCYTE % 9.2 % (4.7-12.5); RDW 14.1 % (12.5-17.0)
[2025-05-30 09:14] LABS: ALK PHOS 57.0 U/L (45-117); CO2 31.0 mmol/L (21-32); CREATININE 0.9 mg/dl (0.6-1.3); GLUCOSE,RANDOM 97.0 mg/dl (74-106); LDL CHOLESTEROL (ONLY DFH) 50.0 mg/dL (5-100); SGOT/AST 20.0 U/L (15-37); SGPT/ALT 12.0 U/L (7-52); TOT PROT 6.3 g/dl (6.4-8.2)
[2025-05-30] MEDS: POLYETHYLENE GLYCOL (HEALTHYLAX) 3350 17 GM PACKET PO SCH (18:43)
[2025-05-30] MEDS: APIXABAN 2.5 MG TABLET PO SCH (18:57)
[2025-05-31 01:55] VITALS: RESP 18
[2025-05-31 14:18] VITALS: PULSE 53; TEMP 98.1
[2025-05-31 14:21] VITALS: BP 149/62
== END 2025-05-31 15:55 | DRG 918 ==
LOC: FER 09:16 → FM/S 11:43
PROVIDERS: ATTEND Internal Medicine
DX: T59.811A Toxic effect of smoke, accidental (unintentional), initial encounter (principal); I13.0 Hypertensive heart and chronic kidney disease with heart failure and stage 1 through stage 4 chronic kidney disease, or unspecified chronic kidney disease; I50.32 Chronic diastolic (congestive) heart failure; R20.8 Other disturbances of skin sensation; N18.9 Chronic kidney disease, unspecified; I25.10 Atherosclerotic heart disease of native coronary artery without angina pectoris; E78.5 Hyperlipidemia, unspecified; H57.9 Unspecified disorder of eye and adnexa; I50.9 Heart failure, unspecified; X58.XXXA Exposure to other specified factors, initial encounter; Y93.9 Activity, unspecified; Y92.89 Other specified places as the place of occurrence of the external cause; Y99.9 Unspecified external cause status; R62.7 Adult failure to thrive; K21.9 Gastro-esophageal reflux disease without esophagitis; I48.91 Unspecified atrial fibrillation
CPT/HCPCS: 36415; 36600; 71045-TC-FY; 80053; 80061; 82375; 82803; 83036; 83735; 83880; 84439; 84443; 84484; 85025; 86480; 86803; 87389; 93005; 93306-TC; 97116-GP; 97162-GP; 99285-25